=== PATIENT | female | born 1950 | race Caucasian/White ===

== ENCOUNTER → 2024-10-20 | Outpatient (CLI) | payer OTHER, MEDICAID | END | disposition home or self-care (01) | LOC: Rad HDHVI 14:42 | PROVIDERS: ATTEND Internal Medicine Cardiovascular Disease | DX: Z01.810 Encounter for preprocedural cardiovascular examination (principal); I08.2 Rheumatic disorders of both aortic and tricuspid valves | CPT/HCPCS: 93306 ==

== ENCOUNTER 2024-10-28 09:55 | Outpatient (CLI) | payer OTHER, MEDICAID ==
[~2024-10-28] VITALS: Ht 172.7 cm; Wt 75.7 kg
[2024-10-28] MEDS ORDERED: DOBUTamine 1000MCG/ML 250 ML IV ONE (10:56)
[2024-10-28] MEDS ORDERED: DOBUTamine 1000MCG/ML 100 ML IV ONE (16:15)
--- NOTE | 2024-11-04 15:47 | DVHSR ---
APPROVED REPORT ECHOCARDIOGRAM Echocardiogram was performed by dental laboratory technician in four stages in quad fashion and compared. Conclusion NO ISCHEMI DOBUTAMINE STRESS CARDIOLITE PRE INFUSION EF >55% AT MAXIUM INFUSION EF >65%
== END 2024-10-28 17:00 | disposition home or self-care (01) ==
LOC: Rad HDHVI 09:55
PROVIDERS: ATTEND Internal Medicine Cardiovascular Disease
DX: Z01.810 Encounter for preprocedural cardiovascular examination (principal); R07.89 Other chest pain
CPT/HCPCS: 93017; J1250